=== PATIENT | male | born 1970 | race Caucasian/White ===

== ENCOUNTER 2019-05-31 12:48 | Inpatient (IN) ==
[2019-05-31] MEDS ORDERED: SODIUM CHLORIDE 0.9% 1000ML 1,000 ML IV SCH ×2 (13:30→15:30)
--- NOTE | 2019-05-31 13:45 | Emergency Department Note ---
History of Present Illness General Chief complaint: Abdominal Pain Stated complaint: STOMACH PAIN, PAIN IN LEGS&BACK,CHILLS,FEVER Time Seen by Provider: 05/31/19 13:14 History of Present Illness Maximum Pain Intensity: 7 This is a 49-year-old male with a history of 7 strokes, as well as angioplasty of the brain performed at [facility] that presents to the emergency department today with complaints of "stomach pain, pain in legs and back, chills, fever". The patient notes that he was here 2 weeks ago on May 15. He had very similar symptoms and was given IV Tylenol and had tests performed. He notes that the fever subsided and he was discharged home. He states that after 2 days he felt much better and did not follow-up. His temperature was around 99 F but last night around 5 PM when he came in from work his temperature was 102 F. He took Tylenol ibuprofen and has been alternating these. He notes that the pain in the epigastric region that radiates to the left hip and low back has worsened and his fever has increased therefore prompting his visit here today. He notes that he is taking his medications. He also notes his heart rate has been higher than normal. There is no chest pain. No shortness of breath. He denies any IV drug use. He denies any history of back surgeries. He denies any known tick bites or rashes. Home Medications Home Medications Medication Instructions Recorded Confirmed Type aspirin 325 mg PO HS 05/15/19 05/31/19 History clonazepam 0.5 mg PO BID 05/15/19 05/31/19 History ergocalciferol (vitamin D2) 50,000 unit PO WK 05/15/19 05/31/19 History [Vitamin D2] pantoprazole 40 mg PO HS 05/15/19 05/31/19 History propranolol 60 mg PO HS 05/15/19 05/31/19 History rosuvastatin [Crestor] 20 mg PO HS 05/15/19 05/31/19 History acetaminophen [Tylenol Extra 500 mg PO Q6H PRN 05/31/19 05/31/19 History Strength] Allergies Allergy/AdvReac Type Severity Reaction Status Date / Time clarithromycin Allergy Severe SHORTNESS Verified 05/31/19 14:28 OF BREATH Past Med/Surg History Medical History HTN (hypertension) (Chronic) Kidney stones (Resolved) Paresthesias (Acute) TIA (transient ischemic attack) (Acute) TIA (transient ischemic attack) (Acute) Transient neurological symptoms (Acute) Ischemic stroke Surgical History Hx of angioplasty Family History Other No pertinent family history in first degree relatives Social History Feels Safe at Home: Yes Smoking Status: Current every day smoker Review of Systems A total of 10 systems reviewed and were otherwise negative Physical Exam Vital Signs Vital Signs - 24 hr 05/31/19 12:58 05/31/19 13:37 05/31/19 13:42 Temperature 37.4 C Temperature Source Oral Sepsis Recent Fever Within 48 Hours No Sepsis New/Unexplained Change in Mental Status No Sepsis Action Taken by Nursing No Action Required Pulse Rate 120 H 119 H 118 H Pulse Rate from SpO2 Sensor 119 H 118 H Respiratory Rate 20 22 Blood Pressure 179/116 H 171/110 H Blood Pressure Mean 137 130 Pulse Oximetry 97 97 97 Oxygen Delivery Method 05/31/19 14:00 05/31/19 14:01 05/31/19 14:30 Temperature Temperature Source Sepsis Recent Fever Within 48 Hours Sepsis New/Unexplained Change in Mental Status Sepsis Action Taken by Nursing Pulse Rate 113 H 113 H 116 H Pulse Rate from SpO2 Sensor 112 H 113 H 117 H Respiratory Rate 22 Blood Pressure 167/109 H Blood Pressure Mean 128 Pulse Oximetry 98 96 97 Oxygen Delivery Method Room Air 05/31/19 14:31 05/31/19 15:21 05/31/19 15:30 Temperature 39.0 C H Temperature Source Oral Sepsis Recent Fever Within 48 Hours Sepsis New/Unexplained Change in Mental Status Sepsis Action Taken by Nursing Pulse Rate 118 H 117 H 122 H Pulse Rate from SpO2 Sensor 117 H Respiratory Rate 32 H 28 H Blood Pressure 147/87 H Blood Pressure Mean 107 Pulse Oximetry 97 Oxygen Delivery Method 05/31/19 16:00 05/31/19 16:23 05/31/19 16:30 Temperature Temperature Source Sepsis Recent Fever Within 48 Hours Sepsis New/Unexplained Change in Mental Status Sepsis Action Taken by Nursing Pulse Rate 109 H 105 H 103 H Pulse Rate from SpO2 Sensor Respiratory Rate Blood Pressure 148/99 H Blood Pressure Mean 115 Pulse Oximetry Oxygen Delivery Method 05/31/19 16:31 05/31/19 17:00 05/31/19 17:01 Temperature Temperature Source Sepsis Recent Fever Within 48 Hours Sepsis New/Unexplained Change in Mental Status Sepsis Action Taken by Nursing Pulse Rate 103 H 106 H 104 H Pulse Rate from SpO2 Sensor Respiratory Rate 29 H 23 Blood Pressure 137/91 132/100 Blood Pressure Mean 106 110 Pulse Oximetry Oxygen Delivery Method 05/31/19 17:30 05/31/19 17:31 05/31/19 18:00 Temperature Temperature Source Sepsis Recent Fever Within 48 Hours Sepsis New/Unexplained Change in Mental Status Sepsis Action Taken by Nursing Pulse Rate 100 H 100 H 103 H Pulse Rate from SpO2 Sensor Respiratory Rate Blood Pressure 137/92 Blood Pressure Mean 107 Pulse Oximetry Oxygen Delivery Method 05/31/19 18:01 05/31/19 18:07 Temperature 36.9 C Temperature Source Oral Sepsis Recent Fever Within 48 Hours Sepsis New/Unexplained Change in Mental Status Sepsis Action Taken by Nursing Pulse Rate 99 H Pulse Rate from SpO2 Sensor Respiratory Rate Blood Pressure 122/86 Blood Pressure Mean 98 Pulse Oximetry Oxygen Delivery Method VITAL SIGNS - Vital signs and nursing notes were reviewed. Hypertensive and tachycardic, otherwise stable. GENERAL -49-year-old male appearing his stated age who is in no acute distress. Communicates well with provider and answers questions appropriately. SKIN - Without rashes. No meningeal or petechial rash. HEAD - NC/AT. EYES - PERRL with EOMI bilaterally. Sclera anicteric. EARS - No deformities of external structures noted on gross examination bilaterally. NOSE - Midline and without cyanosis. No epistaxis or purulent drainage noted. MOUTH/OROPHARYNX - Without perioral cyanosis. NECK - Neck with FROM. Supple to palpation. No lymphadenopathy noted. No nuchal rigidity. LUNGS - Chest wall symmetric without accessory muscle use, intercostals retractions, or central cyanosis. Normal vesicular breath sounds CTA B/L. No wheezes, rales, or rhonchi appreciated. CARDIAC - RRR with S1/S2. No murmur, rubs, or gallops appreciated. ABDOMEN - Abdominal contour normal without pulsations or visible masses. BS normoactive all four quadrants. No tenderness, palpable masses, hepatosplenomegaly, or ascites noted. EXTREMITIES - No clubbing or peripheral cyanosis. No pretibial edema present. . +5/5 strength noted in UE/LE bilaterally. NEUROLOGIC - Cranial nerves II through XII grossly intact. PSYCH - A&O, and cooperates fully with examiner. Pt is very pleasant and interacts well with examiner. Course Administered Medications Ioversol (Optiray 320 125ml) 93 ml IV ONCE PRN PRN Reason: Interaction Checking Stop: 06/04/19 16:18 Last Admin: 05/31/19 16:19 Dose: 93 ml Documented by: [id number] Discontinued Medications Acetaminophen (Tylenol) 650 mg PO NOW STA Stop: 05/31/19 15:00 Last Admin: 05/31/19 15:20 Dose: 650 mg Documented by: [id number] Sodium Chloride (Nss 1000ml) 1,000 mls @ 999 mls/hr IV .Q1H1M TIKI Stop: 05/31/19 14:30 Last Infusion: 05/31/19 15:26 Dose: 0 mls/hr Documented by: [id number] Admin: 05/31/19 14:34 Dose: 999 mls/hr Documented by: [id number] Sodium Chloride (Nss 1000ml) 1,000 mls @ 999 mls/hr IV .Q1H1M TIKI Stop: 05/31/19 16:30 Last Infusion: 05/31/19 17:33 Dose: 0 mls/hr Documented by: [id number] Admin: 05/31/19 16:38 Dose: 999 mls/hr Documented by: [id number] Doxycycline Hyclate 100 mg/ (Dextrose) 110 mls @ 50 mls/hr IV NOW STA Stop: 05/31/19 17:38 Last Admin: 05/31/19 16:38 Dose: 50 mls/hr Documented by: [id number] Ceftriaxone Sodium 2,000 mg/ (Dextrose) 70 mls @ 100 mls/hr IV NOW STA Stop: 05/31/19 16:25 Last Infusion: 05/31/19 17:33 Dose: 0 mls/hr Documented by: [id number] Admin: 05/31/19 16:38 Dose: 100 mls/hr Documented by: [id number] Ketorolac Tromethamine (Toradol) 15 mg IV NOW STA Stop: 05/31/19 15:00 Last Admin: 05/31/19 15:21 Dose: 15 mg Documented by: [id number] Medical Decision Making Laboratory Data Result diagrams: 05/31/19 14:09 05/31/19 14:09 Lab Results 05/31/19 05/31/19 05/31/19 Range/Units 13:37 14:09 14:09 WBC 7.39 (4.8-10.8) K/uL RBC 4.31 L (4.7-6.1) M/uL Hgb 13.8 L (14.0-18.0) g/dL Hct 39.2 L (42-52) % MCV 91.0 (80-100) fL MCH 32.0 (25-34) pg MCHC 35.2 (32-36) g/dL RDW Std Deviation 42.7 (36.4-46.3) fL RDW Coeff of Alexander 12.7 (11.5-14.5) % Plt Count 140 (130-400) K/uL MPV 10.1 (7.4-10.4) fL Immature Gran % (Auto) 0.3 % Neut % (Auto) 74.8 % Lymph % (Auto) 17.6 % Butler % (Auto) 6.5 % Eos % (Auto) 0.3 % Baso % (Auto) 0.5 % Immature Gran # (Auto) 0.02 (0.00-0.02) K/uL Neut # (Auto) 5.53 (1.4-6.5) K/uL Lymph # (Auto) 1.30 (1.2-3.4) K/uL Butler # (Auto) 0.48 (0.11-0.59) K/uL Eos # (Auto) 0.02 (0-0.5) K/uL Baso # (Auto) 0.04 (0-0.2) K/uL Absolute Nucleated RBC 0.00 (0-0) K/uL Nucleated RBC % (auto) 0.0 % ESR (0-14) mm/hr Sodium (136-145) mmol/L Potassium (3.5-5.1) mmol/L Chloride (98-107) mmol/L Carbon Dioxide (21-32) mmol/L Anion Gap (3-11) BUN (7-18) mg/dl Creatinine (0.6-1.4) mg/dl Est Cr Clr Drug Dosing ml/min Est GFR ( Amer) Est GFR (Non-Af Amer) BUN/Creatinine Ratio (10-20) Glucose (70-99) mg/dl Lactate (0.4-2.0) mmol/L Calcium (8.5-10.1) mg/dl Magnesium (1.8-2.4) mg/dl Total Bilirubin (0.2-1) mg/dl AST (15-37) U/L ALT (12-78) U/L Alkaline Phosphatase (45-117) U/L Troponin I (0-0.045) ng/ml C-Reactive Protein (0-0.29) mg/dl Total Protein (6.4-8.2) gm/dl Albumin (3.4-5.0) gm/dl Globulin (2.5-4.0) gm/dl Albumin/Globulin Ratio (0.9-2) Lipase (73-393) U/L Procalcitonin 0.10 (0-0.5) ng/ml TSH (0.300-4.500) uIu/ml Urine Color Urine Appearance (Clear) Urine pH (4.5-7.5) Ur Specific [place] (1.000-1.030) Urine Protein (Negative) Urine Glucose (UA) (Negative) Urine Ketones (Negative) Urine Blood (Negative) Urine Nitrite (Negative) Urine Bilirubin (Negative) Urine Urobilinogen (Negative) Ur Leukocyte Esterase (Negative) Urine WBC (Auto) (0-5) /hpf Urine RBC (Auto) (0-4) /hpf U Hyaline Cast (Auto) (0-5) /lpf U Epithel Cells (Auto) (0-5) /lpf Urine Bacteria (Auto) (Negative) Urine Opiates Screen (Neg) Ur Methadone, Qual (Neg) Urine Barbiturates (Neg) Ur Phencyclidine (PCP) (Neg) U Amphetamin/Meth Scrn (Neg) MDMA (Ecstasy) Screen (Neg) U Benzodiazepines Scrn (Neg) Ur Cocaine Metabolite (Neg) U Marijuana (THC) Screen (Neg) Lyme Disease IgG Ab Negative (Negative) Lyme Disease IgM Ab Positive A (Negative) Influenza Type A Ag Neg for Influ A (Neg) Influenza Type B Ag Neg for Influ B (Neg) 05/31/19 05/31/19 05/31/19 Range/Units 14:09 14:09 14:13 WBC (4.8-10.8) K/uL RBC (4.7-6.1) M/uL Hgb (14.0-18.0) g/dL Hct (42-52) % MCV (80-100) fL MCH (25-34) pg MCHC (32-36) g/dL RDW Std Deviation (36.4-46.3) fL RDW Coeff of Alexander (11.5-14.5) % Plt Count (130-400) K/uL MPV (7.4-10.4) fL Immature Gran % (Auto) % Neut % (Auto) % Lymph % (Auto) % Butler % (Auto) % Eos % (Auto) % Baso % (Auto) % Immature Gran # (Auto) (0.00-0.02) K/uL Neut # (Auto) (1.4-6.5) K/uL Lymph # (Auto) (1.2-3.4) K/uL Butler # (Auto) (0.11-0.59) K/uL Eos # (Auto) (0-0.5) K/uL Baso # (Auto) (0-0.2) K/uL Absolute Nucleated RBC (0-0) K/uL Nucleated RBC % (auto) % ESR 28 H (0-14) mm/hr Sodium 133 L (136-145) mmol/L Potassium 3.5 (3.5-5.1) mmol/L Chloride 101 (98-107) mmol/L Carbon Dioxide 23 (21-32) mmol/L Anion Gap 9.0 (3-11) BUN 13 (7-18) mg/dl Creatinine 0.95 (0.6-1.4) mg/dl Est Cr Clr Drug Dosing 99.3 ml/min Est GFR ( Amer) 110.0 Est GFR (Non-Af Amer) 94.9 BUN/Creatinine Ratio 14.1 (10-20) Glucose 146 H (70-99) mg/dl Lactate 1.6 (0.4-2.0) mmol/L Calcium 8.5 (8.5-10.1) mg/dl Magnesium 1.8 (1.8-2.4) mg/dl Total Bilirubin 0.8 (0.2-1) mg/dl AST 19 (15-37) U/L ALT 29 (12-78) U/L Alkaline Phosphatase 31 L (45-117) U/L Troponin I < 0.015 (0-0.045) ng/ml C-Reactive Protein 9.50 H (0-0.29) mg/dl Total Protein 7.4 (6.4-8.2) gm/dl Albumin 3.6 (3.4-5.0) gm/dl Globulin 3.8 (2.5-4.0) gm/dl Albumin/Globulin Ratio 0.9 (0.9-2) Lipase 105 (73-393) U/L Procalcitonin (0-0.5) ng/ml TSH 0.347 (0.300-4.500) uIu/ml Urine Color Urine Appearance (Clear) Urine pH (4.5-7.5) Ur Specific [place] (1.000-1.030) Urine Protein (Negative) Urine Glucose (UA) (Negative) Urine Ketones (Negative) Urine Blood (Negative) Urine Nitrite (Negative) Urine Bilirubin (Negative) Urine Urobilinogen (Negative) Ur Leukocyte Esterase (Negative) Urine WBC (Auto) (0-5) /hpf Urine RBC (Auto) (0-4) /hpf U Hyaline Cast (Auto) (0-5) /lpf U Epithel Cells (Auto) (0-5) /lpf Urine Bacteria (Auto) (Negative) Urine Opiates Screen (Neg) Ur Methadone, Qual (Neg) Urine Barbiturates (Neg) Ur Phencyclidine (PCP) (Neg) U Amphetamin/Meth Scrn (Neg) MDMA (Ecstasy) Screen (Neg) U Benzodiazepines Scrn (Neg) Ur Cocaine Metabolite (Neg) U Marijuana (THC) Screen (Neg) Lyme Disease IgG Ab (Negative) Lyme Disease IgM Ab (Negative) Influenza Type A Ag (Neg) Influenza Type B Ag (Neg) 05/31/19 05/31/19 Range/Units 15:38 15:38 WBC (4.8-10.8) K/uL RBC (4.7-6.1) M/uL Hgb (14.0-18.0) g/dL Hct (42-52) % MCV (80-100) fL MCH (25-34) pg MCHC (32-36) g/dL RDW Std Deviation (36.4-46.3) fL RDW Coeff of Alexander (11.5-14.5) % Plt Count (130-400) K/uL MPV (7.4-10.4) fL Immature Gran % (Auto) % Neut % (Auto) % Lymph % (Auto) % Butler % (Auto) % Eos % (Auto) % Baso % (Auto) % Immature Gran # (Auto) (0.00-0.02) K/uL Neut # (Auto) (1.4-6.5) K/uL Lymph # (Auto) (1.2-3.4) K/uL Butler # (Auto) (0.11-0.59) K/uL Eos # (Auto) (0-0.5) K/uL Baso # (Auto) (0-0.2) K/uL Absolute Nucleated RBC (0-0) K/uL Nucleated RBC % (auto) % ESR (0-14) mm/hr Sodium (136-145) mmol/L Potassium (3.5-5.1) mmol/L Chloride (98-107) mmol/L Carbon Dioxide (21-32) mmol/L Anion Gap (3-11) BUN (7-18) mg/dl Creatinine (0.6-1.4) mg/dl Est Cr Clr Drug Dosing ml/min Est GFR ( Amer) Est GFR (Non-Af Amer) BUN/Creatinine Ratio (10-20) Glucose (70-99) mg/dl Lactate (0.4-2.0) mmol/L Calcium (8.5-10.1) mg/dl Magnesium (1.8-2.4) mg/dl Total Bilirubin (0.2-1) mg/dl AST (15-37) U/L ALT (12-78) U/L Alkaline Phosphatase (45-117) U/L Troponin I (0-0.045) ng/ml C-Reactive Protein (0-0.29) mg/dl Total Protein (6.4-8.2) gm/dl Albumin (3.4-5.0) gm/dl Globulin (2.5-4.0) gm/dl Albumin/Globulin Ratio (0.9-2) Lipase (73-393) U/L Procalcitonin (0-0.5) ng/ml TSH (0.300-4.500) uIu/ml Urine Color Yellow Urine Appearance Clear (Clear) Urine pH 7.5 (4.5-7.5) Ur Specific [place] 1.010 (1.000-1.030) Urine Protein Negative (Negative) Urine Glucose (UA) Negative (Negative) Urine Ketones Negative (Negative) Urine Blood Trace H (Negative) Urine Nitrite Negative (Negative) Urine Bilirubin Negative (Negative) Urine Urobilinogen Negative (Negative) Ur Leukocyte Esterase Negative (Negative) Urine WBC (Auto) 0 (0-5) /hpf Urine RBC (Auto) 0-4 (0-4) /hpf U Hyaline Cast (Auto) 0 (0-5) /lpf U Epithel Cells (Auto) 0-5 (0-5) /lpf Urine Bacteria (Auto) Negative (Negative) Urine Opiates Screen Neg (Neg) Ur Methadone, Qual Neg (Neg) Urine Barbiturates Neg (Neg) Ur Phencyclidine (PCP) Neg (Neg) U Amphetamin/Meth Scrn Neg (Neg) MDMA (Ecstasy) Screen Neg (Neg) U Benzodiazepines Scrn Neg (Neg) Ur Cocaine Metabolite Neg (Neg) U Marijuana (THC) Screen Neg (Neg) Lyme Disease IgG Ab (Negative) Lyme Disease IgM Ab (Negative) Influenza Type A Ag (Neg) Influenza Type B Ag (Neg) Imaging Data Radiologist's Impression: XR chest 1V portable CLINICAL HISTORY: fever, abd pain COMPARISON STUDY: Chest radiograph May 15, 2019. FINDINGS: Lung volumes are normal. Lungs are clear. There is no pneumothorax or pleural effusion. Cardiac size is normal. Mediastinal contours are normal. There is no evidence for pulmonary edema. IMPRESSION: No acute cardiopulmonary findings. Electronically signed by: Avinash Stone M.D. 05/31/2019 1:[address] OF THE ABDOMEN AND PELVIS WITH CONTRAST CLINICAL HISTORY: Abdominal pain. Back pain. COMPARISON STUDY: CT of the abdomen and pelvis May 15, 2019. TECHNIQUE: Following IV administration of 93 mL of Optiray-320, axial images of the abdomen and pelvis were obtained from the lung bases to the proximal femurs. Images were reviewed in the axial, sagittal, and coronal planes. IV contrast was administered without complication. Automated exposure control was utilized for the study. A dose lowering technique was utilized adhering to the principles of ALARA. Oral contrast was administered. FINDINGS: Please note that the lumbar spine CT will be reported separately. No pneumatosis, free air or portal venous gas is present. A few renal cysts are noted. There is a 2 mm calculus within the lower pole of the left kidney. There are no ureteral calculi. There is no hydronephrosis. The liver, spleen, adrenal glands and pancreas are unremarkable. There is no biliary or pancreatic ductal dilatation. The caliber and wall thickness of small and large bowel are normal. The appendix is normal. There is no lymphadenopathy or ascites. There is moderate atherosclerotic plaque within the abdominal aorta which is normal caliber. No suspicious osseous lesions are noted. There is no fluid collection is suggest an abscess. IMPRESSION: 1. No acute process within the abdomen or pelvis. 2. Normal appendix. No bowel obstruction. 3. Left-sided nephrolithiasis. No ureteral calculi. Electronically signed by: Avinash Stone M.D. 05/31/2019 4:[address] OF THE LUMBAR SPINE WITH CONTRAST CLINICAL HISTORY: Back pain and fever. COMPARISON STUDY: No previous studies for comparison. TECHNIQUE: Axial images of the lumbar spine were obtained following intravenous injection of 93 cc Optiray 320 IV. Sagittal and coronal reconstructions were viewed. Study was performed utilizing automated exposure control for dose reduction and according to ALARA principles. FINDINGS: Note that the CT of the abdomen and pelvis will be reported separately. Alignment of the lumbar spine is anatomic with the exception of slight leftward curvature. Vertebral body heights are maintained. There is no f racture or suspicious lesion. Disc spaces are preserved. Facet joints are intact. The central canal and neural foramen are suboptimally assessed by CT technique however no abnormalities are identified on this exam. The sacroiliac joints are intact. IMPRESSION: 1. Unremarkable CT of the lumbar spine. No fracture. 2. Suboptimal evaluation of the central canal and neural foramen given CT technique but no significant abnormality identified. Electronically signed by: Avinash Stone M.D. 05/31/2019 4:26 PM [facility] Narrative Patient was seen and evaluated as above in room C1. Review was performed of nursing notes and vital signs. After obtaining a thorough history and physical examination the above work up was performed. Previous visit was reviewed. He presents to us today with fever, chills, abdominal pain, and lower extremity ache. He does appear to be ill on exam but is not toxic appearing. His vital signs upon arrival reveal tachycardia at 120 bpm, hypertension at 179/116. He then developed tachypnea. The patient's previous visit lab work and work-up was quite unremarkable. Decision was made to repeat labs and also imaging. I also added a Lyme test. CBC reveals no leukocytosis. Anemia with hemoglobin of 13.8. ESR 28. Mild hyponatremia at 133. Troponin negative. CRP elevated at 9.50. Lipase, procalcitonin, TSH as well as lactic within normal limits. Urinalysis does not reveal infection. Urine drug screen negative. Anaplasmosis testing pending. Lyme disease IgM antibody positive. He was given IV doxycycl ine noting that he had just consumed the contrast for the CT and I was concerned that he may vomit this back up hence the reason behind the IV dose. He was also given IV Rocephin given his fever here, tachycardia, tachypnea and presentation prior to receiving the CT results again noting his presentation and vital signs. On exam he has no evidence of meningitis. No neurovascular compromise. CT scan of the abdomen and pelvis did not reveal any emergent process and the the lumbar spine was also negative. Chest x-ray shows no acute process. I believe that the cause of the patient's presentation here today is indeed from Lyme disease. I will note that his presentation vitals did not reveal fever however repeat examination revealed that he was feeling quite warm and I checked this at the b edside rate around 3 PM and it was found to be at 39 C orally. He was then medicated with IV Toradol and p.o. Tylenol. Because of the patient's persistent tachycardia and presentation here today it was felt that he was warranted to stay in the hospital for IV antibiotics. I discussed this with the attending physician as well as the on-call hospitalist. I spoke with Dr. Chapman. Please refer to further documentation regarding the patient's stay. Case was discussed with the attending physician. EKG per my interpretation reveals sinus tachycardia, rate of 115 bpm without any evidence of LA. I attest that I have personally reviewed the patient medication list. I attest that I have reviewed the patient's blood pressure and it was found to be elevated. GCS: 15 In the evaluation and treatment of this patient the following differential diagnoses were entertained: Sepsis, bacteremia, meningitis, encephalitis, epidural abscess, Lyme disease, anaplasmosis, ehrlichiosis, among others. Impression & Plan Acute Lyme disease, Sinus tachycardia, Tachypnea on examination, Fever, Upper abdominal pain, unspecified Discharge Plan Visit Data Chief Complaint: Abdominal Pain Stated Complaint: STOMACH PAIN, PAIN IN LEGS&BACK,CHILLS,FEVER ED Provider: Zeus Fontenot ED Midlevel Provider: Jasper Ding Discharge Problem: Acute Lyme disease, Sinus tachycardia, Tachypnea on examination, Fever, Upper abdominal pain, unspecified Forms Stand Alone Forms: Call Back Authorization, [facility] Prescriptions Prescriptions: No Action aspirin 325 mg Tablet 325 mg PO HS RF: 0 clonazepam 0.5 mg tablet 0.5 mg PO BID RF: 0 propranolol 60 mg capsule,extended release 24 hr 60 mg PO HS RF: 0 pantoprazole 40 mg Tablet,Delayed Release (Dr/Ec) 40 mg PO HS RF: 0 ergocalciferol (vitamin D2) [Vitamin D2] 50,000 unit capsule 50,000 unit PO WK RF: 0 rosuvastatin [Crestor] 20 mg Tablet 20 mg PO HS RF: 0 acetaminophen [Tylenol Extra Strength] 500 mg Tablet 500 mg PO Q6H PRN (Reason: Pain) RF: 0 Referrals Referrals: PCP,NO [Primary Care Provider] -
[2019-05-31 14:24] LABS: Basophils # (auto) 0.04 K/uL (0-0.2); Basophils % (auto) 0.5 %; Eosinophils # (auto) 0.02 K/uL (0-0.5); Eosinophils % (auto) 0.3 %; Hematocrit (blood only) 39.2 % (42-52); Hemoglobin 13.8 g/dL (14.0-18.0); Immature Granulocytes # (auto) 0.02 K/uL (0.00-0.02); Immature Granulocytes % (auto) 0.3 %; Lymphocytes % (auto) 17.6 %; Mean Corpuscular Hgb Conc 35.2 g/dL (32-36); Mean Platelet Volume 10.1 fL (7.4-10.4); Monocytes # (auto) 0.48 K/uL (0.11-0.59); Monocytes % (auto) 6.5 %; Neutrophils # (auto) 5.53 K/uL (1.4-6.5); Neutrophils % (auto) 74.8 %; Platelet Count 140 K/uL (130-400); RDW Coefficient of Variation 12.7 % (11.5-14.5); RDW Standard Deviation 42.7 fL (36.4-46.3); Red Blood Count 4.31 M/uL (4.7-6.1); White Blood Count 7.39 K/uL (4.8-10.8)
[2019-05-31 14:43] LABS: Alanine Aminotransferase 29 U/L (12-78); Albumin Level 3.6 gm/dl (3.4-5.0); Aspartate Aminotransferase 19 U/L (15-37); BUN Creatinine Ratio 14.1 (10-20); Blood Urea Nitrogen 13 mg/dl (7-18); Calcium 8.5 mg/dl (8.5-10.1); Carbon Dioxide 23 mmol/L (21-32); Chloride 101 mmol/L (98-107); Creatinine Clr Calc Pharmacy 99.3 ml/min; Est GFR (Non-African American) 94.9; Glucose 146 mg/dl (70-99); Magnesium 1.8 mg/dl (1.8-2.4); Potassium 3.5 mmol/L (3.5-5.1); Sodium 133 mmol/L (136-145)
[2019-05-31 14:51] LABS: Albumin Globulin Ratio 0.9 (0.9-2); Alkaline Phosphatase 31 U/L (45-117); Bilirubin,Total 0.8 mg/dl (0.2-1); Globulin 3.8 gm/dl (2.5-4.0); Total Protein 7.4 gm/dl (6.4-8.2); Troponin I < 0.015 ng/ml (0-0.045)
[2019-05-31] MEDS ORDERED: KETOROLAC 30 MG/ML VIAL IV STA (14:59)
[2019-05-31] MEDS ORDERED: ACETAMINOPHEN 325 MG TAB PO STA (14:59)
[2019-05-31 15:17] LABS: Lyme Ab IgG w/WB Rflx Negative (Negative)
[2019-05-31 15:18] LABS: Lyme Ab IgM w/WB Rflx Positive (Negative)
[2019-05-31] MEDS ORDERED: DOXYCYCLINE HYCLATE 100 MG in DEXTROSE 5% 100 ML IV STA (15:27)
[2019-05-31] MEDS ORDERED: cefTRIAXone SODIUM 2,000 MG in DEXTROSE 5% 50 ML IV STA (15:44)
[2019-05-31 15:58] LABS: Appearance Urine Clear (Clear); Bacteria Urine Automated Negative (Negative); Bilirubin Urine Negative (Negative); Blood Urine Trace (Negative); Cast Urine Automated 0 /lpf (0-5); Color Urine Yellow; Epithelial Cell Urine Auto 0-5 /lpf (0-5); Glucose Urine UA Negative (Negative); Ketones Urine Negative (Negative); Leukocyte Esterase Urine Negative (Negative); Nitrite Urine Negative (Negative); Protein Urine Negative (Negative); RBC Urine Automated 0-4 /hpf (0-4); Urobilinogen Urine Negative (Negative); WBC Urine Automated 0 /hpf (0-5); pH Urine 7.5 (4.5-7.5)
[2019-05-31 16:16] LABS: Amphetamines+Metham, Urine Neg (Neg); Barbiturates, Urine Neg (Neg); Benzodiazepine, Urine Neg (Neg); Cocaine, Urine Neg (Neg); MDMA (Ecstacy), Urine Neg (Neg); Methadone, Urine Neg (Neg); Opiate, Urine Neg (Neg); Phencyclidine, Urine Neg (Neg)
[2019-05-31] MEDS ORDERED: OPTIRAY 320 125ml IV PRN (16:19)
--- NOTE | 2019-05-31 16:28 | CT Scan Report ---
CT OF THE LUMBAR SPINE WITH CONTRAST CLINICAL HISTORY: Back pain and fever. COMPARISON STUDY: No previous studies for comparison. TECHNIQUE: Axial images of the lumbar spine were obtained following intravenous injection of 93 cc Op tiray 320 IV. Sagittal and coronal reconstructions were viewed. Study was performed utilizing automat ed exposure control for dose reduction and according to ALARA principles. FINDINGS: Note that the CT of the abdomen and pelvis will be reported separately. Alignment of the chao mbar spine is anatomic with the exception of slight leftward curvature. Vertebral body heights are ma intained. There is no fracture or suspicious lesion. Disc spaces are preserved. Facet joints are inta ct. The central canal and neural foramen are suboptimally assessed by CT technique however no abnorma lities are identified on this exam. The sacroiliac joints are intact. IMPRESSION: 1. Unremarkable CT of the lumbar spine. No fracture. 2. Suboptimal evaluation of the central canal and neural foramen given CT technique but no significan t abnormality identified. Electronically signed by: Avinash Stone M.D. 05/31/2019 4:26 PM
--- NOTE | 2019-05-31 16:38 | CT Scan Report ---
CT OF THE ABDOMEN AND PELVIS WITH CONTRAST CLINICAL HISTORY: Abdominal pain. Back pain. COMPARISON STUDY: CT of the abdomen and pelvis May 15, 2019. TECHNIQUE: Following IV administration of 93 mL of Optiray-320, axial images of the abdomen and pelvi s were obtained from the lung bases to the proximal femurs. Images were reviewed in the axial, sagitt al, and coronal planes. IV contrast was administered without complication. Automated exposure contro l was utilized for the study. A dose lowering technique was utilized adhering to the principles of A BENNY. Oral contrast was administered. FINDINGS: Please note that the lumbar spine CT will be reported separately. No pneumatosis, free air or portal venous gas is present. A few renal cysts are noted. There is a 2 mm calculus within the low er pole of the left kidney. There are no ureteral calculi. There is no hydronephrosis. The liver, spl een, adrenal glands and pancreas are unremarkable. There is no biliary or pancreatic ductal dilatatio n. The caliber and wall thickness of small and large bowel are normal. The appendix is normal. There is no lymphadenopathy or ascites. There is moderate atherosclerotic plaque within the abdominal aorta which is normal caliber. No suspicious osseous lesions are noted. There is no fluid collection is boswell ggest an abscess. IMPRESSION: 1. No acute process within the abdomen or pelvis. 2. Normal appendix. No bowel obstruction. 3. Left-sided nephrolithiasis. No ureteral calculi. Electronically signed by: Avinash Stone M.D. 05/31/2019 4:37 PM
[2019-05-31] MEDS ORDERED: KETOROLAC TROMETHAMINE 15 MG/ML VIAL IV PRN (17:54)
[2019-05-31] MEDS ORDERED: ONDANSETRON INJ 2 MG/ML 2 ML VIAL IV PRN (18:44)
[2019-05-31] MEDS ORDERED: ALUMINUM/MAGNESIUM SUSP 30 ML UDC PO PRN (18:44)
[2019-05-31] MEDS ORDERED: ACETAMINOPHEN 325 MG TAB PO PRN (18:44)
[2019-05-31] MEDS ORDERED: POLYETHYLENE (MIRALAX) 17 GM PACK PO PRN (18:44)
[2019-05-31] MEDS ORDERED: ACETAMINOPHEN 500 MG TAB PO PRN (18:44)
[2019-05-31] MEDS: SODIUM CHLORIDE 0.9% 1000ML 1,000 ML IV SCH (18:48)
--- NOTE | 2019-05-31 18:50 | History & Physical Report ---
Date of Service May 31, 2019 Assessment & Plan (1) Acute Lyme disease: SIRS 2/2 lyme infection with generalized muscle pain, joint, back pain and fever / chills. continue IV doxycycline and Rocephin F/U blood cultures / lyme titers and anaplasma antibodies. trend fever curve and WBC closely. No signs of meningismus. Present on Admission?: Yes (2) Sinus tachycardia: SIRS 2/2 acute lyme infection. monitor closely aggressive IV fluid hydration Present on Admission?: Yes (3) Fever: trend fever curve closely supportive therapy with IV fluids, tylenol and toradol as tolerated Present on Admission?: Yes (4) Upper abdominal pain, unspecified: CT scan of abd / pelvis unremarkable, nml lipase level. likely due to lyme disease. cont with pain control as tolerated Present on Admission?: Yes (5) HTN (hypertension): stable on inderal (6) Kidney stones: non obstructing small left calculi with normal renal function. will closely monitor for now Present on Admission?: Yes (7) Transient neurological symptoms: h/o MCA stenosis left s/p Angioplasty. no sxs of syncope, LOC, dizziness or LH or paresthesis. continue on crestor, ASA and inderal. Present on Admission?: Yes (8) Hyponatremia: likely due to hypovolemia and lyme disease. cont to trend after NSS fluid hydration (9) Elevated C-reactive protein (CRP): acute inflammatory response 2/2 infection. should improve with adequate antibiotic treatment History of Present Illness Chief Complaint: abdominal pain, fever, diffuse joint pain, generalized malaise Primary Care Provider: NO PCP 49y/o Male PmHx TIA/ CVA / left MCA stenosis s/p angioplasty at [facility], HTN who presented to the ED with complaint of diffuse abdominal pain, fever and joint pain for 3days. Patient was initially seen in the ED 2 weeks ago with similar complaints. At that time, work up was unremarkable, he was given IV tylenol and IV rocehpin x 1 dose and discharged home. Symptoms improved after discharge from ED 2 weeks ago but on thursday he noticed worsened epigastric and left sided sharp stabbing abdominal pain with diffuse lower back and hip and ankle joint pain. Also with nasuea, vomiting, diarrhea and elevated temperature, Tmax 102 last night and generalized malaise. Took ibuprofen and tylenol without any improvement of fever and pain. Patient does not recall any recent tick bites or sick contacts at home. In ED, BP 147/87 HR 117, RR28 Labs showed WBC 7.3, Na- 133, K - 3.5, Cr- 0.95 Mg- 1.8, lactate- 1.6, CRP- 9.3 lipase [address] scan of abd/pelvis no acute abnormalities, left sided nephrolithiasis . CT scan of lumbar spine- no acute fracture, suboptimal evaluation of central canal or neural foramen. He was given IV rocephin and doxycyline Allergies Allergy/AdvReac Type Severity Reaction Status Date / Time clarithromycin Allergy Severe SHORTNESS Verified 05/31/19 14:28 OF BREATH Home Medications Home Medications Medication Instructions Recorded Confirmed Type aspirin 325 mg PO HS 05/15/19 05/31/19 History clonazepam 0.5 mg PO BID 05/15/19 05/31/19 History ergocalciferol (vitamin D2) 50,000 unit PO WK 05/15/19 05/31/19 History [Vitamin D2] pantoprazole 40 mg PO HS 05/15/19 05/31/19 History propranolol 60 mg PO HS 05/15/19 05/31/19 History rosuvastatin [Crestor] 20 mg PO HS 05/15/19 05/31/19 History acetaminophen [Tylenol Extra 500 mg PO Q6H PRN 05/31/19 05/31/19 History Strength] Past Med/Surg History Medical History HTN (hypertension) (Chronic) Kidney stones (Resolved) Paresthesias (Acute) TIA (transient ischemic attack) (Acute) TIA (transient ischemic attack) (Acute) Transient neurological symptoms (Acute) Ischemic stroke Surgical History Hx of angioplasty Family History Other No pertinent family history in first degree relatives Social History Preferred Language: Tristanian Communication Ability: Effective Beliefs That Will Affect Care: None Current Living Situation: Family Other Information That Helps Us Care for You: No Feels Safe at Home: Yes Safety Concerns: Feels Safe At This Time Smoking Status: Never smoker Hx Alcohol Use: No Hx Substance Use: No Review of Systems Constitutional: + fever, + chills, + sweats, + body aches, + fatigue, + malaise and + weakness Eyes: no blind spots, no diplopia, no eye pain, no photophobia and no worsening vision Ear, Nose, Mouth, Throat: no dizziness, no nasal congestion, no nasal discharge, no sinus pain/pressure and no dysphagia Respiratory: no cough, no chest congestion, no dyspnea on exertion, no hemoptysis and no pain on inspiration Cardiovascular: no chest pain, no radiating jaw, neck or arm pain, no dyspnea at rest, no dyspnea on exertion and no palpitations Gastrointestinal: + abdominal pain, + nausea, + vomiting and + diarrhea/loose stools Genitourinary: no dysuria and no urinary frequency Musculoskeletal: + back pain, + joint pain, + myalgia and + body aches; no neck pain and no stiffness Integumentary: no rash Neurologic: no gait abnormality, no localized weakness, no paralysis, no numbness and no paresthesia Physical Exam Constitutional: well developed, well nourished, + ill appearing and well groomed Eyes: PERRL, conjunctivae normal, anicteric sclerae ENMT: external ear and nose normal, oropharynx normal Neck: trachea midline, no thyromegaly neck nontender, negative Kernig's sign and no nuchal rigidity Respiratory: normal respiratory effort, lungs clear to auscultation Auscultation: lungs clear to auscultation bilaterally Cardiovascular: RRR, no murmur, no edema Heart Sounds: normal S1 and normal S2 Extremities: no edema Gastrointestinal (Abdomen): normal bowel sounds, soft, nontender, no hepatosplenomegaly Musculoskeletal: no cyanosis or clubbing, extremities motor strength 5/5 Head/Neck/Chest: normocephalic and head atraumatic Extremities: extremities normal to inspection Skin: no rashes, warm and dry Neurologic: PERRL, EOMI, accommodation nl, no face palsy, no dysarthria Psychiatric: A+Ox3, euthymic affect Lymphatic: no cervical or axillary lymphadenopathy Results & Data Vital Signs (Past 12 Hours) Vital Signs Temp Pulse Resp BP Pulse Ox 05/31/19 18:30 96 H 30 H 05/31/19 18:07 36.9 C 05/31/19 18:01 99 H 122/86 05/31/19 18:00 103 H 05/31/19 17:31 100 H 137/92 05/31/19 17:30 100 H 05/31/19 17:01 104 H 23 132/100 05/31/19 17:00 106 H 29 H 05/31/19 16:31 103 H 137/91 05/31/19 16:30 103 H 05/31/19 16:23 105 H 148/99 H 05/31/19 16:00 109 H 05/31/19 15:30 39.0 C H 122 H 05/31/19 15:21 117 H 28 H 05/31/19 14:31 118 H 32 H 147/87 H 97 05/31/19 14:30 116 H 97 05/31/19 14:01 113 H 22 167/109 H 96 05/31/19 14:00 113 H 98 05/31/19 13:42 118 H 97 05/31/19 13:37 119 H 22 171/110 H 97 05/31/19 12:58 37.4 C 120 H 20 179/116 H 97 Laboratory Results Abnormal lab results 05/31/19 05/31/19 05/31/19 Range/Units 14:09 14:09 14:09 RBC 4.31 L (4.7-6.1) M/uL Hgb 13.8 L (14.0-18.0) g/dL Hct 39.2 L (42-52) % ESR (0-14) mm/hr Sodium 133 L (136-145) mmol/L Glucose 146 H (70-99) mg/dl Alkaline Phosphatase 31 L (45-117) U/L C-Reactive Protein 9.50 H (0-0.29) mg/dl Urine Blood (Negative) Lyme Disease IgM Ab Positive A (Negative) 05/31/19 05/31/19 Range/Units 14:13 15:38 RBC (4.7-6.1) M/uL Hgb (14.0-18.0) g/dL Hct (42-52) % ESR 28 H (0-14) mm/hr Sodium (136-145) mmol/L Glucose (70-99) mg/dl Alkaline Phosphatase (45-117) U/L C-Reactive Protein (0-0.29) mg/dl Urine Blood Trace H (Negative) Lyme Disease IgM Ab (Negative) 05/31/19 14:09 05/31/19 14:[address] OF THE ABDOMEN AND PELVIS WITH CONTRAST CLINICAL HISTORY: Abdominal pain. Back pain. COMPARISON STUDY: CT of the abdomen and pelvis May 15, 2019. TECHNIQUE: Following IV administration of 93 mL of Optiray-320, axial images of the abdomen and pelvis were obtained from the lung bases to the proximal femurs. Images were reviewed in the axial, sagittal, and coronal planes. IV contrast was administered without complication. Automated exposure control was utilized for the study. A dose lowering technique was utilized adhering to the principles of ALARA. Oral contrast was administered. FINDINGS: Please note that the lumbar spine CT will be reported separately. No pneumatosis, free air or portal venous gas is present. A few renal cysts are noted. There is a 2 mm calculus within the lower pole of the left kidney. There are no ureteral calculi. There is no hydronephrosis. The liver, spleen, adrenal glands and pancreas are unremarkable. There is no biliary or pancreatic ductal dilatation. The caliber and wall thickness of small and large bowel are normal. The appendix is normal. There is no lymphadenopathy or ascites. There is moderate atherosclerotic plaque within the abdominal aorta which is normal caliber. No suspicious osseous lesions are noted. There is no fluid collection is suggest an abscess. IMPRESSION: 1. No acute process within the abdomen or pelvis. 2. Normal appendix. No bowel obstruction. 3. Left-sided nephrolithiasis. No ureteral calculi. XR chest 1V portable CLINICAL HISTORY: fever, abd pain COMPARISON STUDY: Chest radiograph May 15, 2019. FINDINGS: Lung volumes are normal. Lungs are clear. There is no pneumothorax or pleural effusion. Cardiac size is normal. Mediastinal contours are normal. There is no evidence for pulmonary edema. IMPRESSION: No acute cardiopulmonary findings. PG Care Time/CCT Total # of Minutes Spent Total Time Spent with Patient: Total time spent is greater than 50% in coordination of care (as documented) at patient's floor/unit and/or counseling patient:
[2019-05-31] MEDS: clonazePAM 0.5 MG TAB PO SCH (20:37)
[2019-05-31] MEDS: DOXYCYCLINE HYCLATE 100 MG in DEXTROSE 5% 100 ML IV SCH (20:38)
[2019-05-31] MEDS ORDERED: ROSUVASTATIN CALCIUM 20 MG TAB PO SCH (21:00)
[2019-05-31] MEDS ORDERED: PROPRANOLOL HCL 60 MG LA CAP PO SCH (21:00)
[2019-05-31] MEDS ORDERED: ASPIRIN 325 MG ECTAB PO SCH (21:00)
[2019-05-31] MEDS ORDERED: PANTOprazole 40 MG TAB PO SCH (21:00)
[2019-06-01] MEDS: SODIUM CHLORIDE 0.9% 1000ML 1,000 ML IV SCH (02:31)
[2019-06-01 06:17] LABS: Basophils # (auto) 0.07 K/uL (0-0.2); Basophils % (auto) 1.1 %; Eosinophils # (auto) 0.07 K/uL (0-0.5); Eosinophils % (auto) 1.1 %; Hematocrit (blood only) 37.2 % (42-52); Hemoglobin 12.9 g/dL (14.0-18.0); Immature Granulocytes # (auto) 0.01 K/uL (0.00-0.02); Immature Granulocytes % (auto) 0.2 %; Lymphocytes # (auto) 3.28 K/uL (1.2-3.4); Lymphocytes % (auto) 49.8 %; Mean Corpuscular Hgb Conc 34.7 g/dL (32-36); Mean Corpuscular Volume 93.2 fL (80-100); Mean Platelet Volume 10.4 fL (7.4-10.4); Monocytes # (auto) 0.84 K/uL (0.11-0.59); Monocytes % (auto) 12.8 %; Neutrophils # (auto) 2.31 K/uL (1.4-6.5); Platelet Count 131 K/uL (130-400); RDW Standard Deviation 44.4 fL (36.4-46.3); Red Blood Count 3.99 M/uL (4.7-6.1); White Blood Count 6.58 K/uL (4.8-10.8)
[2019-06-01 06:44] LABS: Albumin Globulin Ratio 0.9 (0.9-2); BUN Creatinine Ratio 15.6 (10-20); Bilirubin,Total 0.5 mg/dl (0.2-1); Calcium 8.2 mg/dl (8.5-10.1); Creatinine Clr Calc Pharmacy 128.3 ml/min; Est GFR (Non-African American) 110.5; Globulin 3.3 gm/dl (2.5-4.0); Potassium 4.1 mmol/L (3.5-5.1); Total Protein 6.3 gm/dl (6.4-8.2)
[2019-06-01] MEDS: clonazePAM 0.5 MG TAB PO SCH (07:27)
[2019-06-01] MEDS ORDERED: cefTRIAXone SODIUM 1,000 MG in DEXTROSE 5% 50 ML IV SCH (08:00)
[2019-06-01] MEDS: DOXYCYCLINE HYCLATE 100 MG in DEXTROSE 5% 100 ML IV SCH (08:14)
[2019-06-01] MEDS ORDERED: ERGOCALCIFEROL 50,000 UNITS CAP PO SCH (09:00)
--- NOTE | 2019-06-01 10:13 | Discharge Summary ---
Date of Service June 01, 2019 Admission HPI Per Admitting Provider 49y/o Male PmHx TIA/ CVA / left MCA stenosis s/p angioplasty at [facility], HTN who presented to the ED with complaint of diffuse abdominal pain, fever and joint pain for 3days. Patient was initially seen in the ED 2 weeks ago with similar complaints. At that time, work up was unremarkable, he was given IV tylenol and IV rocehpin x 1 dose and discharged home. Symptoms improved after discharge from ED 2 weeks ago but on thursday he noticed worsened epigastric and left sided sharp stabbing abdominal pain with diffuse lower back and hip and ankle joint pain. Also with nasuea, vomiting, diarrhea and elevated temperature, Tmax 102 last night and generalized malaise. Took ibuprofen and tylenol without any improvement of fever and pain. Patient does not recall any recent tick bites or sick contacts at home. In ED, BP 147/87 HR 117, RR28 Labs showed WBC 7.3, Na- 133, K - 3.5, Cr- 0.95 Mg- 1.8, lactate- 1.6, CRP- 9.3 lipase [address] scan of abd/pelvis no acute abnormalities, left sided nephrolithiasis . CT scan of lumbar spine- no acute fracture, suboptimal evaluation of central canal or neural foramen. He was given IV rocephin and doxycyline Admission Exam Per Admitting Provider Constitutional: well developed, well nourished, + ill appearing and well groomed Eyes: PERRL, conjunctivae normal, anicteric sclerae ENMT: external ear and nose normal, oropharynx normal Neck: trachea midline, no thyromegaly neck nontender, negative Kernig's sign and no nuchal rigidity Respiratory: normal respiratory effort, lungs clear to auscultation Auscultation: lungs clear to auscultation bilaterally Cardiovascular: RRR, no murmur, no edema Heart Sounds: normal S1 and normal S2 Extremities: no edema Gastrointestinal (Abdomen): normal bowel sounds, soft, nontender, no hepatosplenomegaly Musculoskeletal: no cyanosis or clubbing, extremities motor strength 5/5 Head/Neck/Chest: normocephalic and head atraumatic Extremities: extremities normal to inspection Skin: no rashes, warm and dry Neurologic: PERRL, EOMI, accommodation nl, no face palsy, no dysarthria Psychiatric: A+Ox3, euthymic affect Lymphatic: no cervical or axillary lymphadenopathy Principal Diagnosis Acute Lyme Disease Discharge Exam Constitutional WD/WN, vitals as above Eyes PERRL, conjunctivae normal, anicteric sclerae ENMT external ear and nose normal, oropharynx normal Neck trachea midline, no thyromegaly Respiratory normal respiratory effort, lungs clear to auscultation Cardiovascular RRR, no murmur, no edema Gastrointestinal (Abdomen) normal bowel sounds, soft, nontender, no hepatosplenomegaly Musculoskeletal no cyanosis or clubbing, extremities motor strength 5/5 Skin no rashes, warm and dry Neurologic patellar DTR's 2+ bilat, sensation intact and PERRL, EOMI, accommodation nl, no face palsy, no dysarthria Psychiatric A+Ox3, euthymic affect Lymphatic no cervical or axillary lymphadenopathy Discharge Data Allergies Allergy/AdvReac Type Severity Reaction Status Date / Time clarithromycin Allergy Severe SHORTNESS Verified 05/31/19 14:28 OF BREATH Consultations 05/31/19 16:56 ED Decision to Admit Stat Ordered Studies 05/31/19 13:29 CT abd pelvis oral and IV con Stat 05/31/19 14:07 CT lumbar spine w con Stat Hospital Course (1) Acute Lyme disease: SIRS 2/2 lyme infection with generalized muscle pain, joint, back pain and fever / chills. patient admits to a tick bite two weeks ago on his right ear no neurologic deficits or heart block to suspect that this is tertiary Lyme disease will treat with Doxycycline 100mg q12 for 14 days patient feels great over night after a dose of Rocephin and Doxycycline d/c to home (2) Sinus tachycardia: resolved with IV fluids and antibiotics HR in the 70's this morning (3) Fever: due to Lyme disease no fever since antibiotics started (4) Upper abdominal pain, unspecified: CT scan of abd / pelvis unremarkable, nml lipase level. likely due to lyme disease. pain resolved today (5) HTN (hypertension): stable on inderal (6) Kidney stones: non obstructing small left calculi with normal renal function. will closely monitor for now (7) Transient neurological symptoms: h/o MCA stenosis left s/p Angioplasty. no sxs of syncope, LOC, dizziness or LH or paresthesis. continue on crestor, ASA and inderal. (8) Hyponatremia: likely due to hypovolemia and lyme disease. resolved with hydration, Na 139 (9) Elevated C-reactive protein (CRP): acute inflammatory response 2/2 infection. should improve with adequate antibiotic treatment Total Time Total Time Spent Total Time Spent (In Minutes): 31 minutes Total Time Includes: Examination of the Patient, Discharge Planning and Medication Reconciliation Discharge Plan Discharge Items Patient Disposition: Home - Self-Care Reason For Visit: ABDOMINAL PAIN,JOINT/MUSCLE PAIN,FEVER Discharge Diagnosis: Acute Lyme Disease Condition: Good Discharge Goals: Improve disease control and Improve function Activity: Resume your previous activity Non-emergency contact: Primary Care Provider Call non-emergency contact if: you have any medication questions, your symptoms worsen and you have a fever Follow-up/Referrals: PCP,NO [Physician] - Diet: Regular Addtl Provider Instructions: Medications: - DOXYCYCLINE: 100mg twice a day for 14 days, next dose due this evening Acute Lyme Disease symptoms and signs fit with acute Lyme disease, possible tick bite on ear two weeks ago Lyme IgM antibody positive which is consistent with acute infection treatment is Doxycycline 100mg twice a day for 14 days watch for sun exposure with this medication as it can cause photosensitivity FOLLOW UP - call for appt with Galdino Simons in one week Prescriptions: New doxycycline hyclate 100 mg capsule 100 mg PO BID 14 Days Qty: 28 RF: 0 Continued aspirin 325 mg Tablet 325 mg PO HS RF: 0 clonazepam 0.5 mg tablet 0.5 mg PO BID RF: 0 propranolol 60 mg capsule,extended release 24 hr 60 mg PO HS RF: 0 pantoprazole 40 mg Tablet,Delayed Release (Dr/Ec) 40 mg PO HS RF: 0 ergocalciferol (vitamin D2) [Vitamin D2] 50,000 unit capsule 50,000 unit PO WK RF: 0 rosuvastatin [Crestor] 20 mg Tablet 20 mg PO HS RF: 0 acetaminophen [Tylenol Extra Strength] 500 mg Tablet 500 mg PO Q6H PRN (Reason: Pain) RF: 0 Stand-Alone Forms: Call Back Authorization, [facility] Discharge Orders: Discharge Order (Routine); Ordered 06/01/19 Ordered By: Leroy Camilo Admission Data Admit Date/Time: 05/31/19 17:59 Attending Provider: Leroy Camilo Admit Provider: Chrystal Chapman Primary Care Provider: Galdino Simons Other Providers: Chrystal Chapman Service: Medical Other Interventions: Discharge Summary Assessment (RN) Last Done: 06/01/19 09:29 DC Date/Time DO NOT enter until pt leaves facility: 06/01/19 10:55
[2019-06-08 00:19] LABS: 18KDIGG Band NONREACTIVE (NONREACTIVE); 23KDIGG Band NONREACTIVE (NONREACTIVE); 23KDIGM Band REACTIVE (NONREACTIVE); 28KDIGG Band NONREACTIVE (NONREACTIVE); 30KDIGG Band NONREACTIVE (NONREACTIVE); 39KDIGG Band NONREACTIVE (NONREACTIVE); 39KDIGM Band REACTIVE (NONREACTIVE); 41KDIGG Band NONREACTIVE (NONREACTIVE); 41KDIGM Band REACTIVE (NONREACTIVE); 45KDIGG Band NONREACTIVE (NONREACTIVE); 58KDIGG Band NONREACTIVE (NONREACTIVE); 66KDIGG Band REACTIVE (NONREACTIVE); 93KDIGG Band NONREACTIVE (NONREACTIVE); Lyme Antibodies, WB IgG NEGATIVE (NEGATIVE); Lyme Antibodies, WB IgM POSITIVE (NEGATIVE)
== END 2019-06-01 10:55 | disposition home or self-care (01) | DRG 868 ==
LOC: ED 12:48 → SUATTDRO 17:59 → 4E 17:59